=== PATIENT | female | born 1990 | race Two or more races ===

== ENCOUNTER 2016-12-18 19:53 | Emergency (ER) | payer MEDICAID ==
[~2016-12-18] VITALS: Ht 154.9 cm; Wt 77.1 kg
[2016-12-18 21:36] LABS: APPEARANCE,URINE CLEAR; KETONES,URINE NEGATIVE (NEGATIVE); LEUKOCYTE ESTERASE ,URINE 2+ (NEGATIVE); NITRITE,URINE NEGATIVE (NEGATIVE); PH,URINE 6.5 (4.5-8.0); PROTEIN,URINE NEGATIVE (NEGATIVE); UROBILINOGEN,URINE NORMAL MG/DL (0.0-1.0)
--- NOTE | 2016-12-18 21:47 | Emergency Room Report ---
History of Present Illness General Chief Complaint: Abdominal Pain Source: Patient Present Illness HPI 26-year-old female presents to emergency Department complaining of 9/10 in severity localized lower Abdominal pain since yesterday. Patient states pain had acute onset after lifting heavy bookcase into a new classroom. Patient denies tenderness to palpation states that pain is exacerbated upon getting up out of a chair or going from laying to sitting position. The patient denies abdominal swelling or protrusion. Patient denies nausea, vomiting, constipation , fevers, chills, diarrhea. Patient also reports mild dysuria denies hematuria , reports increased frequency denies . She denies low back pain. Denies CP, Palpitations, LOC, AMS, dizziness, Changes in Vision, Sensation, paresthesias, or a sudden severe headache. Allergies: Coded Allergies: No Known Allergies (Unverified , 12/18/16) Patient History Past Medical History: see triage record Past Surgical History: none Pertinent Family History: none Last Menstrual Period: a month ago Now: No : 1 Immunizations: UTD Reviewed Nursing Documentation: PMH: Agreed, PSxH: Agreed Nursing Documentation-PMH Past Medical History: No Stated History Physical Exam Vital Signs Date Time Temp Pulse Resp B/P Pulse Ox O2 Delivery O2 Flow Rate FiO2 12/18/16 20:15 99.9 109 18 150/86 98 Room Air Medical Decision Making PA Attestation Dr. peña is my supervising Physician whom patient management has been discussed with. Diagnostic Impression: Primary Impression: UTI (urinary tract infection) Qualified Codes: N30.01 - Acute cystitis with hematuria Additional Impression: Muscle strain ER Course Pt. presents to the ED [id number] female presents to emergency Department complaining of 9/10 in severity localized lower Abdominal pain since yesterday. Patient states pain had acute onset after lifting heavy bookcase into a new classroom. Pt also reports dysuria and frequency, no fevers or chills, denies . Ddx considered but are not limited to Fracture, dislocation, contusion, Sprain/ Strain/Spasm, UTI, Vital signs: are WNL, pt. is afebrile H&PE are most consistent with muscle strain, no evidence of hernia, possible UTI will do UA. ORDERS: - UA: WBC's and bacteria noted indicating UTI. -Urine Hcg:Negative ED INTERVENTIONS: -600mg Motrin. -200mg Pyridium. DISCHARGE: At this time pt. is stable for d/c to home. Will provide printed patient care instructions, and any necessary prescriptions. Care plan and follow up instructions have been discussed with the patient prior to discharge. Labs Test 12/18/16 21:00 Urine Color Yellow Urine Appearance Clear Urine pH 6.5 (4.5-8.0) Urine Specific [place] 1.010 (1.005-1.035) Urine Protein Negative (NEGATIVE) Urine Glucose (UA) Negative (NEGATIVE) Urine Ketones Negative (NEGATIVE) Urine Occult Blood 2+ (NEGATIVE) Urine Nitrite Negative (NEGATIVE) Urine Bilirubin Negative (NEGATIVE) Urine Urobilinogen Normal MG/DL (0.0-1.0) Urine Leukocyte Esterase 2+ (NEGATIVE) Urine RBC 0-2 /HPF (0 - 2) Urine WBC 10-15 /HPF (0 - 2) Urine Squamous Epithelial Cells Few /LPF (NONE/OCC) Urine Bacteria Few /HPF (NONE) Urine HCG, Qualitative Negative Last Vital Signs Date Time Temp Pulse Resp B/P Pulse Ox O2 Delivery O2 Flow Rate FiO2 12/18/16 20:15 99.9 109 18 150/86 98 Room Air Disposition: HOME, SELF-CARE Condition: Stable Scripts Phenazopyridine Hcl* (PYRIDIUM*) 200 Mg Tablet 200 MG ORAL THREE TIMES A DAY, #9 TAB 0 Refills Prov: Marzena Galo 12/18/16 Nitrofurantoin Monohyd/M-Cryst* (MACROBID 100 MG*) 100 Mg Capsule 100 MG ORAL EVERY 12 HOURS for 5 Days, #10 CAP Prov: Marzena Galo 12/18/16 Ibuprofen* (MOTRIN*) 600 Mg Tablet 600 MG ORAL THREE TIMES A DAY, #30 TAB 0 Refills Prov: aMrzena Galo 12/18/16 Referrals: NON PHYSICIAN (PCP) Departure Forms: Return to Work Return to Work Date: Dec 20, 2016 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 Return to Full Activity: Dec 27, 2016 Patient Instructions: Muscle Strain, Urinary Tract Infection, [id number] Additional Instructions: Take medications as directed. Follow up with PCP in 3-5 days Return sooner to ED if new symptoms occur, or current symptoms become worse. Marzena Galo Dec 18, 2016 21:47
[2016-12-18 22:06] LABS: RBC,URINE 0-2 /HPF (0 - 2)
[2016-12-18 22:07] LABS: BACTERIA,URINE FEW /HPF; SQUAMOUS EPITHELIAL CELL,UR FEW /LPF (NONE/OCC)
[2016-12-18] MEDS ORDERED: PHENAZOPYRIDIN200 MG ORAL (22:22)
[2016-12-18] MEDS ORDERED: IBUPROFEN600 MG ORAL (22:22)
[2016-12-18] MEDS ORDERED: NITROFURANTOIN100 M2 ORAL (22:22)
[2016-12-18] MEDS: Phenazopyridine 200mg tab ORAL ONE (22:33)
[2016-12-18 22:38] VITALS: BP 148/86
[2016-12-18 22:39] VITALS: BP 150/86
== END 2016-12-18 22:41 | disposition home or self-care (01) ==
LOC: EMR 21:24
DX: N39.0 Urinary tract infection, site not specified (principal); S39.011A Strain of muscle, fascia and tendon of abdomen, initial encounter; X50.0XXA Overexertion from strenuous movement or load, initial encounter; Y92.9 Unspecified place or not applicable
CPT/HCPCS: 81003; 81025; 87086; 99284

== ENCOUNTER 2017-09-14 04:06 | Emergency (ER) | payer MEDICAID ==
[~2017-09-14] VITALS: Ht 154.9 cm; Wt 77.1 kg
[~2017-09-14 04:06] MED LIST: IBUPROFEN600 MG ORAL; NITROFURANTOIN100 M2 ORAL; PHENAZOPYRIDIN200 MG ORAL
[2017-09-14] MEDS ORDERED: NKM (04:15)
[2017-09-14 04:20] VITALS: BP 126/87
[2017-09-14] MEDS ORDERED: TESSALON PERLE100 MG ORAL (04:31)
[2017-09-14 04:40] VITALS: BP 126/87
--- NOTE | 2017-09-14 06:15 | Emergency Room Report ---
History of Present Illness General Chief Complaint: Upper Respiratory Illness Source: Patient Present Illness HPI 19-year-old female no significant past medical history presenting with cough for one week. Nonproductive cough, no fever no chills, slight sore throat and a cough. No recent travel no sick contacts no other complaints Allergies: Coded Allergies: No Known Allergies (Unverified , 12/18/16) Patient History Past Medical History: see triage record Past Surgical History: none Pertinent Family History: none Last Menstrual Period: 07/26/17 Reviewed Nursing Documentation: PMH: Agreed, PSxH: Agreed Nursing Documentation-PMH Past Medical History: No Stated History Review of Systems All Other Systems: negative except mentioned in HPI Physical Exam Vital Signs Date Time Temp Pulse Resp B/P (MAP) Pulse Ox O2 Delivery O2 Flow Rate FiO2 09/14/17 04:09 97.9 65 12 126/87 95 Room Air Sp02 EP Interpretation: reviewed, normal General Appearance: normal inspection, well appearing, no apparent distress, alert, GCS 15, non-toxic Head: normocephalic, atraumatic Eyes: bilateral eye normal inspection, bilateral eye PERRL, bilateral eye EOMI ENT: normal ENT inspection, normal pharynx, normal voice, moist mucus membranes Neck: normal inspection, full range of motion, supple Respiratory: normal inspection, lungs clear, normal breath sounds, no respiratory distress, no retraction, no wheezing, speaking full sentences, chest symmetrical Cardiovascular #1: normal inspection, regular rate, rhythm, no edema, normal capillary refill Cardiovascular #2: 2+ radial (R), 2+ radial (L) Gastrointestinal: normal inspection, non tender, soft, non-distended, no guarding Musculoskeletal: normal inspection, back normal, normal range of motion, non- tender Neurologic: normal inspection, alert, oriented x3, responsive, motor strength/ tone normal, sensory intact, normal gait, speech normal Psychiatric: normal inspection, judgement/insight normal, memory normal Skin: normal inspection, normal color, no rash, warm/dry, well hydrated, normal turgor Medical Decision Making Diagnostic Impression: Primary Impression: Upper respiratory infection ER Course 19-year-old female presenting with dry cough for one week DDX: Viral URI at this time and not consistent with pneumonia, patient appears clinically well, no shortness of breath, lung exam is normal Plan: None any emergency room ER course: Patient remains nontoxic, not in resp distress. Disposition: Patient is to be discharged home with a prescription of Tessalon Perles Strict precautions discussed with patient on when to return to the emergency room including hemoptysis, high fevers, chills, SOB, chest pain which may indicate severe illness. Patient is to follow up with their primary care doctor within 5 days. Patient agrees with plan. Please note that this Emergency Department Report was dictated using [employer] software, occasionally this can lead to erroneous entry secondary to interpretation by the dictation equipment Last Vital Signs Date Time Temp Pulse Resp B/P (MAP) Pulse Ox O2 Delivery O2 Flow Rate FiO2 09/14/17 04:40 97.9 12 126/87 95 Room Air 09/14/17 04:20 65 Disposition: HOME, SELF-CARE Condition: Stable Scripts Benzonatate* (TESSALON PERLE*) 100 Mg Capsule 100 MG ORAL THREE TIMES A DAY for 7 Days, #21 PERLE 0 Refills Prov: Gloria Barger M.D. 09/14/17 Referrals: [facility],REFERRING (PCP) Patient Instructions: Upper Respiratory Infection, Adult Gloria Barger M.D. Sep 14, 2017 06:15
== END 2017-09-14 04:40 | disposition home or self-care (01) ==
LOC: EMR 04:29
DX: J06.9 Acute upper respiratory infection, unspecified (principal)
CPT/HCPCS: 99283

== ENCOUNTER 2017-10-15 21:30 | Emergency (ER) | payer MEDICAID ==
[~2017-10-15] VITALS: Ht 154.9 cm; Wt 77.1 kg
[~2017-10-15 21:30] MED LIST changes: +NKM; +TESSALON PERLE100 MG ORAL
[2017-10-15 21:41] VITALS: BP 153/72
[2017-10-15] MEDS ORDERED: IBUPROFEN600 MG ORAL (21:57)
[2017-10-15] MEDS ORDERED: AZITHROMYCIN250 MG ORAL (21:57)
--- NOTE | 2017-10-15 21:57 | Emergency Room Report ---
History of Present Illness General Chief Complaint: Flu Like Symptoms Source: Patient Present Illness HPI Is a 27-year-old female with no past the patient. She is a schoolteacher. She presents with chief complaint of sore throat and fever. No cough or congestion. Pain is 8/10. Worse with swallowing. Onset yesterday. Denies any other complaint. Allergies: Coded Allergies: No Known Allergies (Unverified , 12/18/16) Patient History Past Medical History: none, see triage record, old chart reviewed Past Surgical History: none Pertinent Family History: none Social History: Denies: smoking Last Menstrual Period: 2 months ago Now: No : 1 Immunizations: other Reviewed Nursing Documentation: PMH: Agreed, PSxH: Agreed Nursing Documentation-PMH Past Medical History: No Stated History Review of Systems Eye: Denies: eye pain, blurred vision ENT: Reports: throat pain, throat swelling, Denies: ear pain, nose congestion Respiratory: Denies: cough, shortness of breath Cardiovascular: Denies: chest pain, palpitations Gastrointestinal: Denies: abdominal pain, diarrhea, nausea, vomiting Musculoskeletal: Denies: back pain, joint pain Skin: Denies: rash Neurological: Denies: headache, numbness Endocrine: Denies: increased thirst, increased urine Hematologic/Lymphatic: Denies: easy bruising All Other Systems: negative except mentioned in HPI Physical Exam Vital Signs Date Time Temp Pulse Resp B/P (MAP) Pulse Ox O2 Delivery O2 Flow Rate FiO2 10/15/17 21:33 98.4 101 18 153/72 98 Room Air vitals are unremarkable Sp02 EP Interpretation: reviewed, normal General Appearance: well appearing, no apparent distress, alert Head: normocephalic, atraumatic Eyes: bilateral eye PERRL, bilateral eye EOMI ENT: hearing grossly normal, tonsillar swelling, pharyngeal erythema, tonsillar exudate Neck: full range of motion, supple, no meningismus Respiratory: chest non-tender, lungs clear, normal breath sounds Cardiovascular #1: regular rate, rhythm, no murmur Gastrointestinal: normal bowel sounds, non tender, no mass, no organomegaly, no bruit, non-distended Musculoskeletal: back normal, gait/station normal, normal range of motion Psychiatric: mood/affect normal Skin: warm/dry Medical Decision Making Diagnostic Impression: Primary Impression: Acute tonsillitis Qualified Codes: J03.90 - Acute tonsillitis, unspecified ER Course Patient with a tonsillitis. No evidence of retropharyngeal abscess or peritonsillar abscess or Ruddy angina. Most likely viral but because lack of URI symptoms, we'll put on antibiotics. Last Vital Signs Date Time Temp Pulse Resp B/P (MAP) Pulse Ox O2 Delivery O2 Flow Rate FiO2 10/15/17 21:33 98.4 101 18 153/72 98 Room Air Status: improved Disposition: HOME, SELF-CARE Condition: Stable Scripts Azithromycin* (ZITHROMAX*) 250 Mg Tablet 250 MG ORAL DAILY, #6 TAB 0 Refills Take two tablets by mouth today, then take one tablet by mouth daily for four days Prov: KAY BORDEN M.D. 10/15/17 Ibuprofen* (MOTRIN*) 600 Mg Tablet 600 MG ORAL THREE TIMES A DAY, #30 TAB 0 Refills Prov: KAY BORDEN M.D. 10/15/17 Additional Instructions: Followup with your Dr. in 7 days. Increase fluid. Saltwater gargle. Return if symptom worsen. KAY BORDEN M.D. Oct 15, 2017 21:57
[2017-10-15 22:05] VITALS: BP 153/72
== END 2017-10-15 22:05 | disposition home or self-care (01) ==
LOC: EMR 21:54
DX: J03.90 Acute tonsillitis, unspecified (principal)
CPT/HCPCS: 99283